=== PATIENT | male | born 1980 | race Caucasian/White ===

== ENCOUNTER 2018-01-01 02:05 | Emergency (ER) | payer SELFPAY ==
[2018-01-01 02:06] VITALS: BMI 27.8
--- NOTE | 2018-01-01 02:30 | C.PDOC ---
History Of Present Illness 37 year old male presents to the ER with a complaint of left great toe pain and swelling after a TV stand fell on it at 15:00 today. Patient reports taking naproxen and applying ointment to the toe with no relief. Denies weakness or numbness. Time Seen by Provider: 01/01/18 02:21 Chief Complaint (Nursing): Lower Extremity Problem/Injury History Per: Patient History/Exam Limitations: no limitations Onset/Duration Of Symptoms: Hrs Current Symptoms Are (Timing): Still Present Recent travel outside of the [place]: No - Ankle/Foot Description Of Injury: Struck With Object Currently Unable To: Bear Weight Alleviating Factor(s): denies: OTC Pain Medication Past Medical History Reviewed: Historical Data, Nursing Documentation, Vital Signs Vital Signs: Last Vital Signs Temp 99.3 F 01/01/18 03:40 Pulse 96 H 01/01/18 03:40 Resp 16 01/01/18 03:40 BP 146/85 01/01/18 03:40 Pulse Ox 97 01/01/18 03:40 - Medical History PMH: HTN, Hypercholesterolemia Family History: States: Unknown Family Hx - Social History Hx Alcohol Use: Yes Hx Substance Use: No Review Of Systems Musculoskeletal: Positive for: Foot Pain Skin: Positive for: Bruising Neurological: Negative for: Weakness, Numbness Physical Exam - Physical Exam Appears: Non-toxic Skin: Warm, Dry Head: Atraumatic, Normacephalic Eye(s): bilateral: Normal Inspection Extremity: Capillary Refill (<2 seconds), Other (Left great toe ecchymotic, swollen, and tender) Pulses: Left Dorsalis Pedis: Normal, Right Dorsalis Pedis: Normal Neurological/Psych: Oriented x3, Normal Speech, Normal Motor, Normal Sensation Gait: Unable To Assess ED Course And Treatment O2 Sat by Pulse Oximetry: 96 (room air) Pulse Ox Interpretation: Normal - Other Rad Left foot x-ray X-Ray: Interpreted by Me, Viewed By Me Interpretation: Fracture of distal phalanx of the great toe. Medical Decision Making Medical Decision Making: Impression: left great toe injury, likely fracture Plan: * Ultram * Left foot x-ray Left foot x-ray showed positive fracture of distal phalanx of the great toe. 0303: Case discussed with podiatry, will come evaluation patient at bedside. Podiatry resident Adelaida Louis arrives to ED. Oracio bandage applied to foot. Surgical shoe applied and given crutches with proper instruction. Patient to be discharged home and follow up in podiatry clinic on Friday with Dr Saeed. Patient expressed understanding Disposition Counseled Patient/Family Regarding: Studies Performed, Diagnosis, Need For Followup, Rx Given - Disposition Referrals: [facility] [Outside] Sydney Saeed DPM [Other] (Podiatry clinic) Disposition: HOME/ ROUTINE Disposition Time: 03:33 Condition: STABLE Additional Instructions: Your Xray shows Toe fracture Follow up in the podiatry clinic with Dr Saeed on Friday. Call to make an appointment take pain medicine as needed Tu radiografa muestra fractura del dedo del pie Binta un seguimiento en la clnica de podologa con el Dr. Saeed . Llamar para hacer cait russ mary lou medicamentos para el dolor segn sea necesario Prescriptions: Ibuprofen [Motrin] 600 mg PO Q8 #30 tab traMADol [Ultram] 50 mg PO Q8 #20 tab Instructions: Toe Fracture (DC) Forms: [employer] (Estonian), Work Excuse Print Language: WOLOF - POA Present On Arrival: None - Clinical Impression Clinical Impression: Closed fracture of left great toe - PA / DRYWALL TAPER / Resident Statement MD/DO has reviewed & agrees with the documentation as recorded. - Scribe Statement The provider has reviewed the documentation as recorded by the Scribe Rodriguez Uriostegui All medical record entries made by the Scribe were at my direction and personally dictated by me. I have reviewed the chart and agree that the record accurately reflects my personal performance of the history, physical exam, medical decision making, and the department course for this patient. I have also personally directed, reviewed, and agree with the discharge instructions and disposition.
[2018-01-01] MEDS ORDERED: Tramadol 25 mg ONE ×2 (02:33→02:35)
--- NOTE | 2018-01-01 03:37 | CP.PCM.CON ---
History of Present Illness - History of Present Illness History of Present Illness: Podiatry Consult note for Dr. Saeed 37 year old male was seen at bedside this morning complain of left big toe pain. He states that earlier today he dropped a TV on his left big toe. At the time it didnt hurt, but has since gotten swollen and more painful. Admits to using an ointment that helps swelling and naproxen with no relief. He admits that he drinks alcohol on a daily basis. He currently denies any n/v/f/c/ sob/cp. Past Patient History - Past Social History Smoking Status: Never Smoked - CARDIAC Hx Hypercholesterolemia: Yes Hx Hypertension: Yes - ENDOCRINE/METABOLIC Hx Diabetes Mellitus Type 2: Yes - PSYCHIATRIC Hx Substance Use: No Meds Home Medications: Home Medication List Medication Instructions Recorded Confirmed Type Ibuprofen [Motrin] 600 mg PO Q8 #30 tab 01/01/18 Rx traMADol [Ultram] 50 mg PO Q8 #20 tab 01/01/18 Rx Allergies/Adverse Reactions: Allergies Allergy/AdvReac Type Severity Reaction Status Date / Time No Known Allergies Allergy Verified 03/20/17 08:48 Physical Exam - Constitutional Appears: Well, Non-toxic, No Acute Distress - Extremities Exam Additional comments: lower extremity focused exam: Vasc:DP and PT pulses palpable 2/4 b/l. CFT < 3 seconds to all digits. Skin temperature warm to warm from proximal to distal. Non-pitting edema noted to left great toe. Derm:Ecchymosis noted to left hallux. No open lesions noted. Ortho:Tenderness on palpation to left great toe. Neuro: gross sensation intact b/l - Neurological Exam Neurological exam: Alert, Oriented x3 - Psychiatric Exam Psychiatric exam: Normal Affect, Normal Mood Results - Vital Signs Recent Vital Signs: Last Vital Signs Temp 98.6 F 01/01/18 02:17 Pulse 98 H 01/01/18 02:17 Resp 20 01/01/18 02:17 BP 138/96 H 01/01/18 02:17 Pulse Ox 96 01/01/18 03:33 Assessment & Plan - Assessment and Plan (Free Text) Assessment: 37 year old male with left hallux non-displaced fx Plan: patient examined and evaluated discussed in detail with attending, Dr. Saeed chart and vitals reviewed radiograph reviewed- non-displaced fracture noted to the distal phalanx of left hallux RICE therapy patients left foot wrapped with SOM surgical shoe dispensed, patient to wear at all times when ambulating, WBAT to heel crutches given for support pain medication per ED PA discussed the importance of not drinking alcohol while taking any medications patient to fu with Dr. Saeed in [facility] podiatry clinic on Friday
[2018-01-01 03:41] VITALS: BP 146/85; PULSE 96; RESP 16; TEMP 99.3
[2018-01-01 04:57] VITALS: O2SAT 96
--- NOTE | 2018-01-01 10:31 | RAD ---
PROCEDURE: Radiographs of the left great toe. TECHNIQUE:: AP radiograph of the left foot, with oblique and lateral view of the left great toe. COMPARISON: None. FINDINGS: BONES: There is a comminuted intra-articular fracture distal phalanx left great toe with mild surrounding soft tissue swelling. 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 Minor vascular calcifications. OTHER FINDINGS: None. IMPRESSION: There is a comminuted intra-articular fracture distal phalanx left great toe with mild surrounding soft tissue swelling.
== END 2018-01-01 03:46 | disposition home or self-care (01) ==
LOC: C.ER 02:05
DX: S92.425A Nondisplaced fracture of distal phalanx of left great toe, initial encounter for closed fracture (principal); W22.8XXA Striking against or struck by other objects, initial encounter; Y92.89 Other specified places as the place of occurrence of the external cause

== ENCOUNTER 2018-02-10 22:28 | Emergency (ER) | payer SELFPAY ==
[2018-02-10 22:29] VITALS: BMI 27.8
[2018-02-10 22:41] VITALS: BP 148/98; PULSE 108; RESP 18; TEMP 98.8; O2SAT 96
--- NOTE | 2018-02-10 23:01 | C.PDOC ---
History Of Present Illness 37 year old male presents to the ED c/o left great toe subungal hematoma. Patient was seen on 01/01 for left great toe fracture and subungal hematoma. Patient followed up once with podiatry and was told his toenail will eventually fall off, however toenail still attached. Patient denies new injury, fall, trauma, foot pain, drainage, weakness, numbness. Time Seen by Provider: 02/10/18 22:47 Chief Complaint (Nursing): Lower Extremity Problem/Injury History Per: Patient History/Exam Limitations: no limitations Onset/Duration Of Symptoms: Days Current Symptoms Are (Timing): Still Present Recent travel outside of the [place]: No Additional History Per: Patient - Ankle/Foot Description Of Injury: Other Past Medical History Reviewed: Historical Data, Nursing Documentation, Vital Signs Vital Signs: Last Vital Signs Temp 98.8 F 02/10/18 22:37 Pulse 108 H 02/10/18 22:37 Resp 18 02/10/18 22:37 BP 148/98 H 02/10/18 22:37 Pulse Ox 96 02/10/18 23:51 - Medical History PMH: HTN, Hypercholesterolemia Surgical History: No Surg Hx Family History: States: Unknown Family Hx - Social History Hx Alcohol Use: Yes Hx Substance Use: No - Immunization History Hx Tetanus Toxoid Vaccination: No Hx Influenza Vaccination: No Hx Pneumococcal Vaccination: No Review Of Systems Constitutional: Negative for: Fever, Chills Cardiovascular: Negative for: Chest Pain, Palpitations Respiratory: Negative for: Cough, Shortness of Breath Gastrointestinal: Negative for: Nausea, Vomiting, Abdominal Pain Musculoskeletal: Positive for: Foot Pain Neurological: Negative for: Weakness, Numbness Physical Exam - Physical Exam Appears: Non-toxic, No Acute Distress Skin: Normal Color, Warm, Dry Head: Atraumatic, Normacephalic Eye(s): bilateral: Normal Inspection Extremity: Normal ROM, No Tenderness, Capillary Refill (< 2 seconds), No Swelling, Other (macular dry scaly rash to plantar aspect of left great toe consistent with psoriasis in other part of the body. No Pain, gross erythema, warmth, drainage of toenail.) Pulses: Left Dorsalis Pedis: Normal, Right Dorsalis Pedis: Normal Neurological/Psych: Oriented x3, Normal Speech, Normal Motor, Normal Sensation Gait: Steady ED Course And Treatment O2 Sat by Pulse Oximetry: 96 (ON RA) Pulse Ox Interpretation: Normal Progress Note: Patient was advised to call to the clinic and get an appointment with podiatry to follow up. Disposition - Disposition Referrals: [facility] [Outside] Podiatry Clinic [Outside] [facility] [Outside] Disposition: HOME/ ROUTINE Disposition Time: 22:59 Condition: STABLE Additional Instructions: Please follow up with PODIATRY CLINIC- CALL FOR APPOINTMENT THIS WEEK CONTINUE WEARING ORTHO SHOE RETURN TO ER IF WORSE Instructions: Contusion (DC) Forms: [email or web address] (Spanish), Gen Discharge Inst Kyrgyz Print Language: ROMANSH - Clinical Impression Clinical Impression: Subungual hematoma of great toe of left foot - PA / OIL WELL FISHING TOOL TECHNICIAN / Resident Statement MD/DO has reviewed & agrees with the documentation as recorded. - Scribe Statement The provider has reviewed the documentation as recorded by the Scribe Cameron Austin All medical record entries made by the Scribe were at my direction and personally dictated by me. I have reviewed the chart and agree that the record accurately reflects my personal performance of the history, physical exam, medical decision making, and the department course for this patient. I have also personally directed, reviewed, and agree with the discharge instructions and disposition.
== END 2018-02-10 23:23 | disposition home or self-care (01) ==
LOC: C.ER 22:28 → SUPCPDRO 22:28 → C.ER 23:23
DX: S90.212D Contusion of left great toe with damage to nail, subsequent encounter (principal); X58.XXXD Exposure to other specified factors, subsequent encounter